=== PATIENT | female | born 1990 | race Caucasian/White ===

== ENCOUNTER 2020-09-21 13:00 | Emergency (ER) | payer OTHER ==
[2020-09-21 13:09] VITALS: PULSE 78; TEMP 98.1; BMI 26.5
[2020-09-21 13:10] VITALS: BP 103/73
[2020-09-21] MEDS ORDERED: FAMOTIDINE 20 MG TABLET PO ONE (13:37)
[2020-09-21] MEDS ORDERED: FAMOTIDINE 20 MG TABLET ONE (13:39)
== END 2020-09-21 14:23 | disposition home or self-care (01) ==
LOC: JER 13:00
DX: T78.40XA Allergy, unspecified, initial encounter (principal)
CPT/HCPCS: 99283-25